=== PATIENT | female | born 1995 | race African-American/Black ===

== ENCOUNTER 2016-11-08 11:21 | Emergency (ER) | payer OTHER ==
[~2016-11-08] VITALS: Ht 154.9 cm; Wt 105.9 kg
[2016-11-08 14:39] VITALS: BP 115/66
[2016-11-08] MEDS ORDERED: IBUPROFEN 800 MG TABLET. PO ONE (15:15)
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
[2016-11-08] MEDS ORDERED: CYCL10TA2 PO (16:00)
== END 2016-11-08 16:05 | disposition home or self-care (01) ==
LOC: ER 11:21
DX: M25.532 Pain in left wrist (principal); S29.012A Strain of muscle and tendon of back wall of thorax, initial encounter; V49.59XA Passenger injured in collision with other motor vehicles in traffic accident, initial encounter; Y92.413 State road as the place of occurrence of the external cause; Y93.89 Activity, other specified; Y99.8 Other external cause status
CPT/HCPCS: 29125; 73110; 99284-25

== ENCOUNTER 2017-11-12 16:04 | Emergency (ER) | payer BC ==
[2017-11-12 16:27] LABS: URINE HCG POC HCG NEGATIVE (Negative)
[2017-11-12 16:32] LABS: BILIRUBIN,URINE NEGATIVE (NEG); CLARITY,URINE CLEAR; COLOR,URINE YELLOW; GLUCOSE,URINE NEGATIVE (NEG); NITRITE,URINE NEGATIVE (NEG); PH,URINE 5.5; PROTEIN,URINE NEGATIVE (NEG-TRACE); UROBILINOGEN,URINE 0.2 mg/dL (0.2 mg/dL)
[2017-11-12 16:52] LABS: BACTERIA,URINE FEW /HPF (0-FEW); RBC,URINE 0 /HPF (0-2); SQUAMOUS EPITHELIAL CELL,UR MOD /LPF
== END 2017-11-12 17:12 | disposition home or self-care (01) ==
LOC: ER 16:04
DX: R10.2 Pelvic and perineal pain (principal)
CPT/HCPCS: 81001; 81025; 87086; 99284